=== PATIENT | male | born 1995 | race African-American/Black ===

== ENCOUNTER 2017-11-10 10:36 | Emergency (ER) | payer MEDICAID, SELFPAY ==
--- NOTE | 2017-11-10 11:32 | RAD ---
PA AND LATERAL VIEWS CHEST: HISTORY: Cough. FINDINGS: The heart size is normal. The lungs are well expanded without focal areas of consolidation, pneumoth orax, or pleural effusions. No acute osseous abnormalities are seen. IMPRESSION: No radiographic evidence of acute cardiopulmonary process. POS: [facility]
== END 2017-11-10 12:01 | disposition home or self-care (01) ==
LOC: ERS 10:36
DX: J20.9 Acute bronchitis, unspecified (principal); I10 Essential (primary) hypertension; E11.9 Type 2 diabetes mellitus without complications; E78.00 Pure hypercholesterolemia, unspecified
CPT/HCPCS: 71046

== ENCOUNTER 2020-04-20 12:00 | Emergency (ER) | payer SELFPAY ==
[2020-04-20] MEDS ORDERED: Adacel (T-DAP) 0.5 ML SYRINGE ONE (13:53)
== END 2020-04-20 14:15 | disposition home or self-care (01) ==
LOC: ERS 12:00
DX: T63.2X1A Toxic effect of venom of scorpion, accidental (unintentional), initial encounter (principal); I10 Essential (primary) hypertension; E11.9 Type 2 diabetes mellitus without complications; E78.00 Pure hypercholesterolemia, unspecified
CPT/HCPCS: 90471; 90715